=== PATIENT | female | born 1985 | race American Indian/Alaskan Native ===

== ENCOUNTER 2017-04-10 02:15 | Emergency (ER) | payer BC, OTHER ==
[2017-04-10 02:26] VITALS: TEMP 97.6; O2SAT 100
[2017-04-10] MEDS ORDERED: Alum-Mag Hydrox-Simethicone Susp (30 mL) PO STA (03:27)
--- NOTE | 2017-04-10 03:29 | C.PDOC ---
History Of Present Illness A 31 y/o F with no past cardiac Hx, c/o intermittent epigastric pain that radiates to the mid chest for the past year. Pain is described as a heart burn. Pt notes the pain has been more frequent for the past few weeks. Pt took OTC antacid with relief, but tonight reports a sensation to the mid epigastric area and mid chest that radiates to the left shoulder. Denies palpitation, SOB, recent travel, use of OCP, diaphoresis, URI sx or any other complaints. Time Seen by Provider: 04/10/17 03:05 Chief Complaint (Nursing): Chest Pain History Per: Patient History/Exam Limitations: no limitations Onset/Duration Of Symptoms: Days, Intermittent Episodes (epigastric) Current Symptoms Are (Timing): Still Present Severity: Mild Quality: "Pain" Recent travel outside of the [place]: No Additional History Per: Patient Past Medical History Reviewed: Historical Data, Nursing Documentation, Vital Signs Vital Signs: Last Vital Signs Temp 97.6 F 04/10/17 04:27 Pulse 64 04/10/17 04:27 Resp 16 04/10/17 04:27 BP 110/72 04/10/17 04:27 Pulse Ox 100 04/10/17 05:13 - Medical History PMH: Anemia Family History: States: Unknown Family Hx - Social History Hx Tobacco Use: No Hx Alcohol Use: Yes (social) Hx Substance Use: No - Immunization History Hx Influenza Vaccination: No Review Of Systems Except As Marked, All Systems Reviewed And Found Negative. Cardiovascular: Positive for: Chest Pain Respiratory: Negative for: Shortness of Breath Gastrointestinal: Positive for: Abdominal Pain Musculoskeletal: Positive for: Shoulder Pain (left shoulder, radiation) Physical Exam - Physical Exam Appears: Non-toxic, No Acute Distress Skin: Warm, Dry Head: Atraumatic, Normacephalic Chest: No Tenderness Cardiovascular: Rhythm Regular Respiratory: Normal Breath Sounds, No Rales, No Rhonchi, No Wheezing Gastrointestinal/Abdominal: Soft, Tenderness (Minimal epigastric tenderness), No Guarding, No Rebound Neurological/Psych: Oriented x3 (Awake and alert) ED Course And Treatment - Laboratory Results Result Diagrams: 04/10/17 03:32 04/10/17 03:32 ECG: Interpreted By Me, Viewed By Me ECG Rhythm: Sinus Rhythm (normal at 60) ECG Interpretation: No Acute Changes O2 Sat by Pulse Oximetry: 100 (RA) Pulse Ox Interpretation: Normal - Radiology CXR: Interpreted by Me CXR Interpretation: Yes: No Acute Disease Progress Note: Impression: A 31 y/o F with no past cardiac Hx, c/o intermittent epigastric pain that radiates to the mid chest for the past year. Plans: EKG, CXR, Pepcid, Maalox, XRAYS, Blood labs, Reassess. Pt feels better and id no longer in pain or discomfort at this time. Labs are within normal limits. Pt will be discharged and instructed to follow up wtih her PMD for cardiology and GI referral as needed. Pt understands return precautions Disposition Counseled Patient/Family Regarding: Diagnosis, Need For Followup, Rx Given - Disposition Referrals: [facility] [Outside] Disposition: HOME/ ROUTINE Disposition Time: 04:34 Condition: STABLE Additional Instructions: Please follow up with PMD or in clinic Avoid red meat, greasy foods, caffeine, motrin or advil Take meds as instructed Return to ER if worse Prescriptions: Aluminum Hydroxide/Magnesium H [Maalox 30 ml] 30 ml PO TID #120 ml Famotidine [Pepcid] 20 mg PO DAILY #20 tab Instructions: Gastroesophageal Reflux Disease (ED) - Clinical Impression Clinical Impression: Gastroesophageal reflux, Epigastric abdominal pain, Chest discomfort - Scribe Statement The provider has reviewed the documentation as recorded by the Scribmagy tuttle All medical record entries made by the Ningibmagy were at my direction and personally dictated by me. I have reviewed the chart and agree that the record accurately reflects my personal performance of the history, physical exam, medical decision making, and the department course for this patient. I have also personally directed, reviewed, and agree with the discharge instructions and disposition.
[2017-04-10] MEDS ORDERED: Aluminum Hydroxide/Magnesium Hydroxide Susp (30 mL) ONE (03:34)
[2017-04-10 03:37] LABS: BASO % 0.5 % (0.0-2.0); EOS # 0.2 K/uL (0.0-0.7); EOS % 2.6 % (0.0-4.0); HEMOGLOBIN 11.1 g/dL (11.0-16.0); LYMPH # 2.1 K/uL (1.0-4.3); LYMPH % 27.1 % (20.0-40.0); MEAN CORPUSCULAR HEMOGLOBIN 26.8 pg (27.0-31.0); MEAN PLATELET VOLUME 9.4 fL (7.2-11.7); MONO # 0.7 K/uL (0.0-0.8); NEUT # 4.6 K/uL (1.8-7.0); NEUT % 60.8 % (50.0-75.0); RBC 4.15 Mil/uL (3.80-5.20); RED CELL DISTRIBUTION WIDTH 15.7 % (11.5-14.5); WHITE BLOOD COUNT 7.6 K/uL (4.8-10.8)
[2017-04-10 03:40] LABS: ALBUMIN 3.8 g/dL (3.5-5.0)
[2017-04-10 03:43] LABS: ALB/GLOB RATIO 1.2 (1.0-2.1); AST/SGOT 23 U/L (14-36); BLOOD UREA NITROGEN 19 mg/dL (7-17); GFR AFRICAN-AMERICAN > 60; GFR NON-AFRICAN AMERICAN > 60
[2017-04-10 03:44] LABS: ALT/SGPT 23 U/L (9-52); CALCIUM 8.6 mg/dl (8.6-10.4)
[2017-04-10 04:27] VITALS: BP 110/72; PULSE 64; RESP 16
--- NOTE | 2017-04-10 08:59 | RAD ---
HISTORY: chest pain COMPARISON: No prior. TECHNIQUE: Chest PA and lateral FINDINGS: LUNGS: The lungs are well inflated. There are calcified granulomas in both upper lobes. No focal consolidation. PLEURA: No significant pleural effusion identified. No pneumothorax apparent. CARDIOVASCULAR: Normal. OSSEOUS STRUCTURES: No significant abnormalities. VISUALIZED UPPER ABDOMEN: Normal. OTHER FINDINGS: None. IMPRESSION: No active pulmonary disease.
--- NOTE | 2017-04-12 09:07 | CARD ---
APPROVED REPORT EKG Measurement Heart [id number] <Conclusion> Normal sinus rhythm Normal ECG
== END 2017-04-10 04:49 | disposition home or self-care (01) ==
LOC: C.ER 02:15
DX: K21.9 Gastro-esophageal reflux disease without esophagitis (principal); R10.13 Epigastric pain; R07.9 Chest pain, unspecified